=== PATIENT | male | born 1980 | race Two or more races ===

== ENCOUNTER 2021-11-05 07:03 | Emergency (ER) | payer OTHER ==
[~2021-11-05] VITALS: Ht 175.3 cm; Wt 141.5 kg
[~2021-11-05 07:03] MED LIST: CELEBREX100 MG PO; SKELAXIN800 MG PO
[2021-11-05] MEDS ORDERED: COZAAR50 MG PO (07:14)
== END 2021-11-05 12:53 | disposition home or self-care (01) ==
LOC: ER 07:03
DX: R51.9 Headache, unspecified (principal); K29.70 Gastritis, unspecified, without bleeding